=== PATIENT | female | born 1985 | race Caucasian/White ===

== ENCOUNTER 2023-12-09 06:26 | Day surgery (SDC) | payer BC, OTHER ==
[~2023-12-09 06:26] MED LIST: Sodium Chloride 0.9% 10 ML Syringe FLUSH PRN; Sodium Chloride 0.9% 2.5 ML Syringe FLUSH PRN; Sodium Chloride 0.9% 20 ML SDV IV PRN; ceFAZolin 2 GM in Sodium Chloride 0.9% 50 ML IV ONE
[2023-12-09] MEDS: Lactated Ringers 1,000 ML IV SCH (07:05)
[2023-12-09] MEDS ORDERED: metroNIDAZOLE/Normal Saline 100 ML ONE (07:06)
[2023-12-09] MEDS: metroNIDAZOLE/Normal Saline 500 MG in Premix Bag 1 BAG IV ONE (07:07)
[2023-12-09] MEDS ORDERED: Bupivacaine 0.5% 30 ML SDV ONE (07:11)
[2023-12-09] MEDS ORDERED: Ropivacaine 0.5% 5 MG/ML 30 ML SDV ONE (07:26)
[2023-12-09] MEDS ORDERED: fentaNYL 100 MCG/2 ML SDV ONE (07:27)
[2023-12-09] MEDS ORDERED: Propofol 200 MG/20 ML SDV ONE (07:27)
[2023-12-09] MEDS ORDERED: Water For Injection, Sterile 20 ML ONE (07:28)
[2023-12-09] MEDS ORDERED: dexmedeTOMIDine HCl 200 MCG/2 ML SDV ONE (07:28)
[2023-12-09] MEDS ORDERED: Rocuronium Bromide 50 MG/5 ML Syringe ONE (07:28)
[2023-12-09] MEDS ORDERED: propofoL 50 ML ONE ×2 (07:31→08:36)
[2023-12-09] MEDS ORDERED: Morphine 10 MG/ML SDV ONE (07:41)
[2023-12-09] MEDS ORDERED: fentaNYL 50 MCG/ML SDV IVPUSH PRN (07:50)
[2023-12-09] MEDS ORDERED: Naloxone 0.4 MG/ML SDV IVPUSH PRN (07:50)
[2023-12-09] MEDS ORDERED: Ondansetron 4 MG/2 ML SDV IVPUSH PRN (07:50)
[2023-12-09] MEDS ORDERED: Morphine 2 MG/ML SYRINGE IVPUSH PRN (07:50)
[2023-12-09] MEDS ORDERED: Albuterol 0.083% 2.5 MG/3 ML Neb Soln NEB PRN (07:50)
[2023-12-09] MEDS ORDERED: droPERidol 5 MG/2 ML SDV IVPUSH PRN (07:50)
[2023-12-09] MEDS ORDERED: Metoclopramide 10 MG/2 ML SDV IVPUSH PRN (07:50)
[2023-12-09] MEDS ORDERED: ceFAZolin 2 GM Vial ONE (08:18)
[2023-12-09] MEDS ORDERED: Magnesium Sulfate (4.06 MEQ/ML) 5 GM/10 ML SDV ONE (08:19)
[2023-12-09] MEDS ORDERED: Ondansetron 4 MG/2 ML SDV ONE (08:20)
[2023-12-09] MEDS ORDERED: Dexamethasone 4 MG/ML 5 ML MDV ONE (08:20)
[2023-12-09] MEDS ORDERED: Ketorolac 30 MG/ML SDV ONE (08:44)
[2023-12-09] MEDS ORDERED: Sugammadex Sodium 200 MG/2 ML VIAL IV ONE (08:44)
[2023-12-09] MEDS: HYDROmorphone 1 MG/ML Syringe IVPUSH PRN (09:32)
[2023-12-09 12:05] VITALS: BP 121/67; PULSE 63
== END 2023-12-09 11:55 | disposition home or self-care (01) ==
LOC: MW.SDS 06:26
PROVIDERS: ATTEND Surgery
DX: K80.10 Calculus of gallbladder with chronic cholecystitis without obstruction (principal); K82.8 Other specified diseases of gallbladder; J45.909 Unspecified asthma, uncomplicated; Z79.899 Other long term (current) drug therapy; Z88.5 Allergy status to narcotic agent
CPT/HCPCS: 47562; 64488; 81025; J0131; J0665; J0690; J1100; J1170; J1836; J1885; J2270; J2405; J2704; J2795; J3010; J3475; J3490; J7120; 00790